=== PATIENT | male | born 1955 | race Caucasian/White ===

== ENCOUNTER 2019-03-26 12:16 | Emergency (ER) | payer BC, OTHER ==
[2019-03-26] MEDS ORDERED: HYDROmorphone 1 MG/ML CARPUJECT IVP STA ×3 (12:26→18:27)
[2019-03-26] MEDS ORDERED: KETOROLAC 30 MG/ML VIAL IVP STA (12:26)
--- NOTE | 2019-03-26 12:30 | ED Physician Documentation ---
History of Present Illness - Stated complaint Stated Complaint: SIDE PX - Chief complaint Chief Complaint: General - History obtained from History obtained from: Patient - History of Present Illness Timing: Today (64-year-old gentleman who is pretty healthy. He has had on and off troubles with renal colic but never needed an intervention. He was seen in urgent care for right flank pain a week ago and diagnosed with kidney stones. Pain recurred half an hour ago, severe in the right flank without visible hematuria. He is slightly nauseous but took a Zofran prior to arrival.) Review of Systems Ten Systems: 10 systems reviewed and negative Constitutional: denies: Fever, Chills Cardiac: denies: Chest pain / pressure, Palpitations Respiratory: denies: Dyspnea, Cough GI: reports: Abdominal Pain, Nausea. denies: Vomiting, Diarrhea : denies: Dysuria, Frequency, Hematuria PD PAST MEDICAL HISTORY - Present Medications Home Medications: Ambulatory Orders Medication Instructions Recorded Confirmed Ondansetron Odt [Zofran] 4 mg TL Q6H PRN #10 tablet 03/26/19 Oxycodone HCl/Acetaminophen 1 - 2 each PO Q6H PRN #14 tablet 03/26/19 [Percocet 5-325 mg Tablet] Tamsulosin [Flomax] 0.4 mg PO DAILY #14 capsule 03/26/19 - Allergies Allergies/Adverse Reactions: Allergies Allergy/AdvReac Type Severity Reaction Status Date / Time No Known Drug Allergies Allergy Verified 03/26/19 13:02 PD ED PE NORMAL - Vitals Vital signs reviewed: Yes - General General: Alert and oriented X 3, Other (He appears acutely in pain and is clutching his right flank) - HEENT HEENT: PERRL, EOMI - Neck Neck: Supple, no meningeal sign, No bony TTP - Cardiac Cardiac: RRR, No murmur - Respiratory Respiratory: No respiratory distress, Clear bilaterally - Abdomen Abdomen: Soft, Non tender - Back Back: No CVA TTP - Derm Derm: Normal color, Warm and dry - Extremities Extremities: No edema, No calf tenderness / cord - Neuro Neuro: Alert and oriented X 3, Normal speech Results - Vitals Vitals: Vital Signs - 24 hr 03/26/19 03/26/19 03/26/19 12:20 13:16 16:19 Temperature 36 C L 36 C L Heart Rate 80 44 L 46 L Respiratory 22 16 18 Rate Blood Pressure 215/94 H 139/69 H 165/95 H O2 Saturation 100 97 100 Oxygen O2 Source Room air - Labs Labs: Laboratory Tests 03/26/19 03/26/19 03/26/19 12:25 12:25 13:35 WBC 8.1 RBC 4.26 L Hgb 13.5 L Hct 40.0 L MCV 93.9 MCH 31.7 H MCHC 33.8 RDW 13.1 Plt Count 235 MPV 9.2 Neut # (Auto) 4.5 Lymph # (Auto) 2.9 [place] # (Auto) 0.5 Eos # (Auto) 0.1 Baso # (Auto) 0.1 Absolute Nucleated RBC 0.00 Nucleated RBC % 0.0 Sodium 138 Potassium 3.6 Chloride 100 L Carbon Dioxide 26 Anion Gap 12.0 BUN 20 Creatinine 1.4 H Estimated GFR (MDRD) 51 L Glucose 176 H Calcium 9.0 Total Bilirubin 0.5 AST 24 ALT 26 Alkaline Phosphatase 82 Total Protein 7.3 Albumin 4.3 Globulin 3.0 Albumin/Globulin Ratio 1.4 Lipase 100 H Urine Color YELLOW Urine Clarity CLEAR Urine pH 6.5 Ur Specific Tiff 1.020 Urine Protein NEGATIVE Urine Glucose (UA) 100 H Urine Ketones NEGATIVE Urine Occult Blood SMALL H Urine Nitrite NEGATIVE Urine Bilirubin NEGATIVE Urine Urobilinogen 0.2 (NORMAL) Ur Leukocyte Esterase NEGATIVE Urine RBC 0-5 Urine WBC 0-3 Ur Squamous Epith Cells NONE SEEN Urine Bacteria Rare Ur Microscopic Review INDICATED Urine Culture Comments NOT INDICATED PD MEDICAL DECISION MAKING - ED course Complexity details: reviewed old records (Records from [facility] and reviewed- [facility]UB x-ray done showing multiple calcifications overlying both kidneys, right greater than left. Trace hematuria.) ED course: 64-year-old gentleman presents with recurrent renal colic on the right. Pain was controlled with Toradol, Dilaudid and IV fluids. There was a significant delay to disposition because of some transportation issues required some repeat dosing while here. Departure - Departure Disposition: 01 Home, Self Care Clinical Impression: Renal colic on right side Condition: Good Health Concerns: pain d/t kidney stone Plan of Treatment: pain control. Pt declined CT today. Care Goals: pain control Assessment: as above Instructions: ED Stone Renal W Colic Follow-Up: Serge Leary MD [Physician No Access] - Within 1 week Prescriptions: Ondansetron Odt [Zofran] 4 mg TL Q6H PRN #10 tablet PRN Reason: Nausea / Vomiting Oxycodone HCl/Acetaminophen [Percocet 5-325 mg Tablet] 1 - 2 each PO Q6H PRN #14 tablet PRN Reason: pain Tamsulosin [Flomax] 0.4 mg PO DAILY #14 capsule Comments: Your creatinine is a little high at 1.4. This will need to be followed. Drink plenty of fluids and try to avoid nonsteroidal anti-inflammatory drugs such as naproxen or ibuprofen because of that.
[2019-03-26 12:32] LABS: BASOPHILS # (AUTO) 0.1 10^3/uL (0.0-0.1); BASOPHILS % (AUTO) 0.6 %; EOSINOPHILS # (AUTO) 0.1 10^3/uL (0.0-0.7); EOSINOPHILS % (AUTO) 1.6 %; HGB - HEMOGLOBIN 13.5 g/dL (14.0-18.0); LYMPHOCYTES # (AUTO) 2.9 10^3/uL (1.5-3.5); LYMPHOCYTES % (AUTO) 35.5 %; MEAN CORPUSCULAR HEMOGLOBIN 31.7 pg (27.0-31.0); MEAN CORPUSCULAR HGB CONC 33.8 g/dL (32.0-36.0); MEAN CORPUSCULAR VOLUME 93.9 fL (80.0-94.0); MEAN PLATELET VOLUME 9.2 fL (7.4-11.4); MONOCYTES # (AUTO) 0.5 10^3/uL (0.0-1.0); MONOCYTES % (AUTO) 6.2 %; NEUTROPHILS # (AUTO) 4.5 10^3/uL (1.5-6.6); PLT - PLATELET COUNT 235 10^3/uL (130-450); RED BLOOD COUNT 4.26 10^6/uL (4.70-6.10); RED CELL DISTRIBUTION WIDTH 13.1 % (12.0-15.0); WHITE BLOOD COUNT 8.1 x10^3/uL (4.8-10.8)
[2019-03-26 12:46] LABS: ALBUMIN 4.3 g/dL (3.2-5.5); ALBUMIN/GLOBULIN RATIO 1.4 (1.0-2.2); BILIRUBIN,TOTAL 0.5 mg/dL (0.2-1.0); CREATININE 1.4 mg/dL (0.6-1.2); TOTAL PROTEIN 7.3 g/dL (6.7-8.2)
[2019-03-26 13:43] LABS: BILIRUBIN,URINE NEGATIVE (NEGATIVE); GLUCOSE, URINE (UA) 100 mg/dL (NEGATIVE); KETONES,URINE (UA) NEGATIVE (NEGATIVE); LEUKOCYTE ESTERASE, URINE NEGATIVE (NEGATIVE); NITRITE,URINE NEGATIVE (NEGATIVE); OCCULT BLOOD,URINE SMALL (NEGATIVE); PH,URINE 6.5 PH (5.0-7.5); PROTEIN,URINE NEGATIVE (NEGATIVE); UROBILINOGEN,URINE 0.2 (NORMAL) E.U./dL (NORMAL)
[2019-03-26 13:46] LABS: CLARITY,URINE CLEAR (CLEAR)
[2019-03-26 13:57] LABS: BACTERIA,URINE Rare /HPF (None Seen); RBC,URINE 0-5 /HPF (0-5); SQUAMOUS EPITHELIAL CELL,UR NONE SEEN (<= Few)
[2019-03-26] MEDS ORDERED: LIDOCAINE-MPF 2% 6 ML in SODIUM CHLORIDE 0.9% 50 ML IV STA (15:56)
[2019-03-26] MEDS ORDERED: ACETAMINOPHEN 325 MG TABLET PO STA (15:56)
[2019-03-26] MEDS ORDERED: LIDOCAINE-MPF 2% 6 ML in SODIUM CHLORIDE 0.9% 50 ML IV ONE (16:01)
[2019-03-26 16:19] VITALS: BP 165/95
[2019-03-26] MEDS ORDERED: ONDANSETRON 4 MG/2 ML VIAL IVP STA (16:19)
[2019-03-26] MEDS ORDERED: ONDANSETRON ODT 4 MG Prepack 2 TL STA (17:34)
[2019-03-26] MEDS ORDERED: oxyCODONE/ACET 5/325 Prepack 4 PO STA (17:34)
[2019-03-26] MEDS ORDERED: TAMSULOSIN 0.4 MG CAPSULE PO STA (18:27)
== END 2019-03-26 18:57 | disposition home or self-care (01) ==
LOC: ED 12:16
DX: N23 Unspecified renal colic (principal)
CPT/HCPCS: 36415; 80053; 81001; 83690; 85025; 96374; 96375; 96376; 99284; 99285; A9270; J1170; 81003; 87086

== ENCOUNTER 2019-11-15 14:42 | Outpatient (CLI) | payer BC ==
[2019-11-15 07:58] LABS: CREATININE 1.1 mg/dL (0.6-1.2)
[~2019-11-15 14:42] MED LIST: IOVERSOL 320 100 ML VIAL IVP ONE; IOVERSOL 320 50 ML VIAL ONE
[2019-11-15] MEDS ORDERED: IOVERSOL 320 100 ML VIAL IVP ONE (16:26)
[2019-11-15] MEDS ORDERED: IOVERSOL 320 50 ML VIAL PO ONE (16:26)
--- NOTE | 2019-11-16 17:35 | CT Report ---
Reason: HERNIA Procedure Date: 11/15/2019 Accession Number: [id number] / [id number] Procedure: CT - Abdomen/Pelvis W CPT Code: Final Report FULL RESULT: EXAM: CT ABDOMEN AND PELVIS EXAM DATE: 11/15/2019 03:15 PM. CLINICAL HISTORY: Hernia. History of hernias. New abdomen pain for 3 days. COMPARISONS: None. TECHNIQUE: Routine helical CT imaging was performed through the abdomen and pelvis. IV contrast: Optiray 320. Enteric contrast: Yes. Reconstructions: Coronal and sagittal. In accordance with CT protocol optimization, one or more of the following dose reduction techniques were utilized for this exam: automated exposure control, adjustment of mA and/or KV based on patient size, or use of iterative reconstructive technique. FINDINGS: Lung bases: No acute findings. Liver: Fatty liver. Gallbladder: Unremarkable. Bile ducts: Unremarkable. Pancreas: Unremarkable. Spleen: Unremarkable. Adrenals: Unremarkable. Kidneys: A couple of left lower pole renal calculi, largest measuring 5 mm. No hydronephrosis or hydroureter. Bowel: Normal appendix. No acute bowel findings are seen. No free fluid or free air. Pelvis: The bladder and remaining pelvic organs appear unremarkable. Small fat-containing umbilical hernia, measures 2.2 cm, the neck measures 6 mm. IMPRESSION: 1. Fatty liver. 2. A couple of left renal calculi, nonobstructing. No hydronephrosis. 3. Small fat-containing umbilical hernia, measures 2.2 cm, the neck measures 6 mm. 4. See above. RADIA
== END 2019-11-15 14:43 | disposition home or self-care (01) ==
LOC: DI 14:42
PROVIDERS: ATTEND Surgery
DX: K42.9 Umbilical hernia without obstruction or gangrene (principal); K76.0 Fatty (change of) liver, not elsewhere classified; N20.0 Calculus of kidney
CPT/HCPCS: 36415; 74177; 82565; 84520; Q9967